=== PATIENT | male | born 1985 | race Caucasian/White ===

== ENCOUNTER → 2019-11-10 | Outpatient (CLI) | payer BC ==
--- NOTE | 2019-11-10 12:22 | RADIOLOGY REPORT (SQ) ---
EXAM DESCRIPTION: U/S ABDOMEN LIMITED W/O DOP IMAGES COMPLETED DATE/TIME: 11/10/2019 10:14 am REASON FOR STUDY: R10.13 EPIGASTRIC PAIN R10.13 EPIGASTRIC PAIN COMPARISON: None. TECHNIQUE: Dynamic and static grayscale images acquired of the abdomen and recorded on PACS. Additio nal selected color Doppler and spectral images recorded. LIMITATIONS: None. FINDINGS: PANCREAS: Not seen. LIVER: No masses. Increased echogenicity. LIVER VASCULATURE: Normal directional flow of the main portal vein and hepatic veins. GALLBLADDER: No stones. Normal wall thickness. No pericholecystic fluid. ULTRASOUND-DETECTED TAI'S SIGN: Negative. INTRAHEPATIC DUCTS AND COMMON DUCT: CBD and intrahepatic ducts normal caliber. No filling defects. AORTA: Aneurysm. The proximal aorta was obscured by gas. RIGHT KIDNEY: Normal size 11.3 cm. Normal echogenicity. No solid or suspicious masses. No hydronephr osis. No calcifications. PERITONEAL AND RIGHT PLEURAL SPACE: No ascites or effusions. OTHER: No other significant findings. IMPRESSION: There is mild degree of hepatic steatosis. No other significant finding. Normal gallbl adder. TECHNICAL DOCUMENTATION: JOB ID: [id number] 2010 [employer]- All Rights Reserved Reading location - IP/workstation name: [email or web address]
== END ==
LOC: RAD 09:10
PROVIDERS: ATTEND Physician Assistant
DX: R10.13 Epigastric pain (principal)
CPT/HCPCS: 76705